=== PATIENT | male | born 1945 | race Caucasian/White ===

== ENCOUNTER → 2019-04-04 05:31 | Day surgery (SDC) | payer MEDICARE, OTHER, BC ==
[~2019-04-04 05:31] MED LIST: Acetaminophen IV 1GM/100ML * 1,000 MG/100 ML VIAL IVPB ONE; Acetaminophen IV 1GM/100ML * 100 ML ONE; Artificial Tear OPHTH.OINT* 3.5 GM ONE; Buffered Lidocaine 1% SYRIN* 1 ML/SYRINGE INTRADERM ONE; Bupivacaine 0.25% SDV* 30 ML ONE; Dexamethasone IV* 4 MG/ML 1 ML (4 MG) ONE; DiMENhydriNATE IV* 50 MG/ML VIAL IV PUSH PRN; EPHEDrine (Pressors)* 50 MG/ML VIAL ONE; Famotidine IV* 10 MG/ML 2 ML (20 mg) IV ONE; Famotidine IV* 10 MG/ML 2 ML (20 mg) ONE; KETAMINE HCL* 50 MG/ML 10 ML VIAL ONE; Lidocaine 1% INJ* 10 MG/ML 30 ML SDV ONE; Lidocaine 2% PF * 5 ML VIAL ONE; Midazolam* 1 MG/ML 5 ML VIAL (5 MG) ONE; NS 0.9% 1000 ML** 1,000 ML IV SCH; Naloxone* 0.4 MG/ML 1 ML VIAL IV PRN; Ondansetron INJ* 2 MG/ML VIAL IV PRN; Ondansetron INJ* 2 MG/ML VIAL ONE; Phenylephrine 10 MG/ML VIAL* 1 ML VIAL ONE; Propofol* 10 MG/ML 20 ML BTL ONE; Succinylcholine* 20 MG/ML 10 ML VIAL ONE; fentaNYL* 50 MCG/ML 2 ML VIAL (100 MCG VIAL) IV PRN; fentaNYL* 50 MCG/ML 2 ML VIAL (100 MCG VIAL) ONE; hydrALAZINE IV* 20 MG/ML VIAL ONE
--- NOTE | 2019-04-04 12:36 | BRIEFOPN ---
Brief Operative/Procedure Note - Operation Details Pre-Op Diagnosis: Thyroid nodules; hyperparathyroidism Post-Op Diagnosis: same Procedures: Total thyroidectomy; parathyroidectomy (Right lower pole, with 4 gland exploration) Surgeon(s)/Proceduralists: Francesco. Assist: BRIDGET Mcclelland Anesthesia: GET. Fluids: 2100 ml RL Estimated Blood Loss: < 50 ml Findings: as above Specimen(s)/Culture(s) Description: throid gland (left and right lobes); right lower pole parathyroid gland; multiple frozen section biopsies intraop Complications: none
[2019-04-04 18:02] VITALS: BP 146/66
--- NOTE | 2019-04-04 21:37 | OP ---
DATE OF OPERATION: 04/04/19 - [facility] DATE OF : 43 SERVICE: General Surgery. SURGEON: Patricia Maya MD PRE-OP DIAGNOSIS: Primary hyperparathyroidism and multinodular goiter. POST-OP DIAGNOSIS: Primary hyperparathyroidism and multinodular goiter. OPERATIVE PROCEDURE: Total thyroidectomy and right lower parathyroidectomy. SPECIMEN: Right lower parathyroid and total thyroid. ESTIMATED BLOOD LOSS: Minimal, less than 10 cc. INDICATIONS FOR SURGERY: Mr. Farmer is a very pleasant 73-year-old gentleman with a history of metastatic renal cell carcinoma, who was recently diagnosed with primary hyperparathyroidism. Given his low GFR and a history of kidney stones, he met criteria for undergoing a parathyroidectomy. Preoperative localization studies did not identify a definitive parathyroid adenoma, therefore he gave informed consent for a parathyroidectomy with 4-gland exploration. Also prior to surgery he had a thyroid ultrasound showing multiple thyroid nodules. Three of them were biopsied and left thyroid nodule was a [place] IV. Given that he did not wish to potentially undergo a second surgery such as completion thyroidectomy, he elected to undergo a total thyroidectomy rather than a left diagnostic lobectomy and declined any further testing of this [place] IV nodule prior to surgery. He understood the risks included, but were not limited to bleeding, infection, injury to nearby structures, and permanent hypoparathyroidism. He understood the alternatives and benefits, and wished to proceed. DESCRIPTION OF PROCEDURE: The patient was brought back to the operating room and placed on the operating table in the supine position. Sequential compression devices were placed on bilateral lower extremities for DVT prophylaxis. No antibiotics were administered. General endotracheal anesthesia was induced and electrodes for the nerve monitor were attached. A time-out was performed prior to administering local anesthesia to the anterior neck. After this was done, a 0.25% Marcaine plus 1% lidocaine was infiltrated into subcutaneous tissue of the anterior neck. Next, the neck was prepped and draped in the normal sterile fashion. Prior to beginning the surgery, a second time-out was performed verifying the patient's name, date of , and the procedure to be performed. Next, an approximately 5 cm incision was made in the natural crease line approximately 2 fingerbreadths above the sternal notch. The skin was divided down to the subcutaneous tissue. The platysma was divided. The inferior and superior subplatysmal flaps were developed. Then, the medial raphe between the strap muscles was identified and divided. The strap muscles were retracted laterally off of the thyroid and isthmus was then divided off of the trachea. Attention was first turned towards removing the left thyroid lobe given that this was at the location of the [place] IV nodule. The medial attachments of the thyroid lobe to the trachea were divided. The space of King between on the superior pole vessels and the cricothyroid muscle was divided using LigaSure. The strap muscles were retracted laterally off of the left thyroid lobe. The middle thyroid vein was identified and divided and then the superior pole vessels were divided using a combination of LigaSure and 2-0 silk ties. After this was done, the left-sided lobe was able to be rotated medially and anteriorly out of the neck. The recurrent laryngeal nerve was identified both visually and with the nerve monitor. Its course was traced where it was inserted into the inferior constricting muscles. After this was identified, the left thyroid lobe was able to be safely removed off the trachea using LigaSure. It was carefully examined and the parathyroids were identified on the actual specimen. The upper pole was marked and it was carried off the table as specimen. Next, the left neck was explored for the left upper and left lower parathyroid glands. The left lower parathyroid gland was identified within the thyrothymic ligament. A piece of that was biopsied and confirmed to be a parathyroid tissue. Initially, the left upper parathyroid gland was not definitively identified. The extensive exploration within the normal locations of an upper gland was performed, including looking within the paraesophageal groove closer to the superior pole vessels and near the cricothyroid muscle. Eventually, the left upper parathyroid gland was identified just posterior the nerve. It was biopsied at the end of the case and the biopsy results confirmed that it was parathyroid tissue. Attention was turned towards the right thyroid lobe. The medial attachments to the trachea were divided using the LigaSure in a similar fashion to the left side. The strap muscles were retracted laterally off of the thyroid gland and the middle thyroid vein was identified and divided. The superior pole vessels were then divided using a combination of LigaSure and 2-0 silk ties, and then right gland was able to be rotated medial and anteriorly out to the neck. A very large right lower parathyroid gland was immediately visualized. It was subcapsular on the thyroid gland itself, which was likely the reason why it was not identified on ultrasound earlier. It was dissected out of its subcapsular location and was clearly very enlarged abnormal appearing parathyroid gland. Given that this was identified, the attention was turned towards identifying the right upper parathyroid gland. It was identified just posterior to the nerve and what would be a normal anatomic location near the cricothyroid muscle. Once these glands were identified, the right lower parathyroid was divided off the pedicle and the serial PTH values were obtained. The baseline had been obtained in the preop holding area. The T0, 5, and 10 were then obtained. The results were as follows: The baseline was 79.8, T0 was 1427.9, T5 was 54.7, and T10 was 288.5. This did meet the [place] criterion, however, an additional PTH value was obtained at time 60, which was 71.3. Given that [place] criterion was met and all 4 glands were identified (three of them were normal and the right lower gland was clearly extremely large and abnormal), the operation was concluded. Hemostasis was obtained in the neck. Tisseel was placed in the right and lateral neck space as well and then the strap muscles were reapproximated using 4-0 Vicryl sutures. The platysma was reapproximated using 4-0 Vicryl sutures. The skin was closed using a running 5-0 Prolene suture. Sterile dressing was in place. The patient's anesthesia was reversed and he was taken to the PACU in stable condition. At the end of the case, all counts were correct and I was present during the entirety of the case. [id number]/[facility] #: [id number] MTDD
== END | disposition home or self-care (01) ==
LOC: OR 05:31
PROVIDERS: ATTEND Surgery
DX: E21.0 Primary hyperparathyroidism (principal); D34 Benign neoplasm of thyroid gland; E04.2 Nontoxic multinodular goiter; C78.01 Secondary malignant neoplasm of right lung; C64.1 Malignant neoplasm of right kidney, except renal pelvis; E11.8 Type 2 diabetes mellitus with unspecified complications; G62.9 Polyneuropathy, unspecified; E78.5 Hyperlipidemia, unspecified; I10 Essential (primary) hypertension; R94.31 Abnormal electrocardiogram [ECG] [EKG]; Z79.84 Long term (current) use of oral hypoglycemic drugs; Z87.891 Personal history of nicotine dependence
CPT/HCPCS: 36415; 83970; 88305; 88307; 88331; 88341; 88342; 93005; C1776; J0330; J0360; J1100; J2250; J2405; J2704; J3010; J3490

== ENCOUNTER 2019-05-06 10:49 | Day surgery (SDC) | payer MEDICARE, OTHER ==
--- NOTE | 2019-05-03 19:11 | HP ---
CC: Dr. Daly HISTORY AND PHYSICAL: DATE OF PLANNED ADMISSION AND SURGERY: 05/06/19 HISTORY OF PRESENT ILLNESS: Mr. Farmer is a 73-year-old white male with a solitary left kidney, left renal calculi for cystoscopy and insertion of left ureteral stent. Mr. Farmer was worked up for hematuria last year and was diagnosed with a 7-cm solid right renal mass. He was referred to [facility] where he underwent robotic-assisted radical nephrectomy in June 2018. His postoperative course was smooth. Pathology showed locally invasive, poorly differentiated renal cell carcinoma with sarcomatoid differentiation. Metastatic workup showed metastatic disease with lymphadenopathy and bilateral pulmonary nodules. Biopsies of the lung nodules confirmed they were metastatic. The patient has been treated by Dr. Leonard in consultation with the Oncology Team at [facility] in [facility]. The patient has been on immunotherapy with good response and regression of his metastatic tumors. His treatment has been well tolerated. His most recent lab work showed normal CBC and differential, and his serum creatinine was 1.6. On 05/02/2019, he he was and [facility] and had a followup CT chest, abdomen , and pelvis with intravenous contrast. The findings showed a 1-cm upper pulmonary lobe mediastinal nodule and few punctate pulmonary nodules. There was a decrease in the mediastinal lymphadenopathy, showing a good response to his immunotherapy. This study also showed a 1 cm calculus in the lower aspect of the left renal pelvis, and a 6 mm calculus at the left ureteropelvic junction. There was no associated hydronephrosis. The patient has been totally asymptomatic from his left kidney having no flank pain and no hematuria. He has been making good urine all along. The patient was seen urgently in my office one day after the CT. Renal ultrasound showed the calculus at the left ureteropelvic junction to have migrated into an upper pole calyx. There was no hydronephrosis noted, and he had good left ureteral jets. He is now admitted for cystoscopy and insertion of a left ureteral stent in preparation for definitive treatment of the stones. PAST MEDICAL HISTORY AND SYSTEM REVIEW: He is diabetic, maintained on metformin and on glimepiride. He is hypertensive, on lisinopril 20 mg daily. He has hyperlipidemia, on simvastatin. He is on tamsulosin 0.4 mg daily for bladder outlet obstruction. ALLERGIES: He denies any allergies to medication. FAMILY HISTORY: Relevant for breast cancer in his mother and brain cancer in his father. SOCIAL HISTORY: The patient is a former smoker and stopped in 1987. He does not use alcohol. He denies any recreational drug use. MENTAL HISTORY: Negative. PHYSICAL EXAMINATION GENERAL: He is a pleasant, healthy-looking white male, who looks his age. VITAL SIGNS: Blood pressure 130/86, pulse of 70. LUNGS: Clear. HEART: Regular and rhythmic. No murmurs. ABDOMEN: Soft. No masses, no tenderness, and no CVA tenderness. EXTERNAL GENITALIA: Normal. RECTAL: Exam last June had shown a non-enlarged and non-suspicious prostate. IMPRESSION: 1. Status post right radical nephrectomy for poorly differentiated metastatic renal cell carcinoma, presently responding well to immunotherapy. 2. Nonobstructing left renal calculi, asymptomatic. 3. Diabetes mellitus. 4. Hypertension. PLAN/RECOMMENDATIONS: Cystoscopy and insertion of left ureteral stent in preparation for definitive treatment of the stones. Until the stent is placed, I asked the patient to call my office promptly if preoperatively he develops symptoms of left renal colic or if he becomes oliguric or anuric, then he will have emergency placement of the stent. I discussed the above plans with the patient and his . [id number]/[facility] #: [id number] [place]
[~2019-05-06 10:49] MED LIST changes: -Acetaminophen IV 1GM/100ML * 1,000 MG/100 ML VIAL IVPB ONE; -Acetaminophen IV 1GM/100ML * 100 ML ONE; -Artificial Tear OPHTH.OINT* 3.5 GM ONE; -Bupivacaine 0.25% SDV* 30 ML ONE; -Dexamethasone IV* 4 MG/ML 1 ML (4 MG) ONE; -DiMENhydriNATE IV* 50 MG/ML VIAL IV PUSH PRN; -EPHEDrine (Pressors)* 50 MG/ML VIAL ONE; -Famotidine IV* 10 MG/ML 2 ML (20 mg) IV ONE; -Famotidine IV* 10 MG/ML 2 ML (20 mg) ONE; -KETAMINE HCL* 50 MG/ML 10 ML VIAL ONE; +Lactated Ringers 1000 ML Bag* 1,000 ML IV SCH; -Lidocaine 1% INJ* 10 MG/ML 30 ML SDV ONE; -Lidocaine 2% PF * 5 ML VIAL ONE; -Midazolam* 1 MG/ML 5 ML VIAL (5 MG) ONE; -NS 0.9% 1000 ML** 1,000 ML IV SCH; -Naloxone* 0.4 MG/ML 1 ML VIAL IV PRN; -Ondansetron INJ* 2 MG/ML VIAL IV PRN; -Ondansetron INJ* 2 MG/ML VIAL ONE; -Phenylephrine 10 MG/ML VIAL* 1 ML VIAL ONE; -Propofol* 10 MG/ML 20 ML BTL ONE; -Succinylcholine* 20 MG/ML 10 ML VIAL ONE; -fentaNYL* 50 MCG/ML 2 ML VIAL (100 MCG VIAL) IV PRN; -fentaNYL* 50 MCG/ML 2 ML VIAL (100 MCG VIAL) ONE; -hydrALAZINE IV* 20 MG/ML VIAL ONE
[2019-05-06] MEDS ORDERED: Buffered Lidocaine 1% SYRIN* 1 ML/SYRINGE INTRADERM ONE (11:06)
[2019-05-06] MEDS ORDERED: cefTRIAXone(*) 2 GM ADDV.VIAL IVPB ONE (11:06)
[2019-05-06] MEDS ORDERED: Iohexol 180 (CONTRAST) 10 ML SDV IV ONE (11:54)
[2019-05-06] MEDS ORDERED: Naloxone* 0.4 MG/ML 1 ML VIAL IV PRN (12:07)
[2019-05-06] MEDS ORDERED: HYDROmorphone INJ1* 1 MG/ML SYRINGE IV PRN (12:07)
[2019-05-06] MEDS ORDERED: Lidocaine 2% JELLY* 6 ML JELLY TOPICAL ONE (12:45)
[2019-05-06] MEDS ORDERED: Lidocaine 2% JELLY* 20 ML (for OR use) ONE (12:45)
[2019-05-06] MEDS ORDERED: Propofol* 10 MG/ML 20 ML BTL ONE (12:58)
[2019-05-06 13:35] VITALS: BP 131/62
--- NOTE | 2019-05-06 20:46 | OP ---
DATE OF OPERATION: 05/06/19 [facility] DATE OF : 43 SURGEON: Keon Melara MD ANESTHESIOLOGIST: Dr. Snow. ANESTHESIA: IV sedation with MAC. PRE-OP DIAGNOSIS: Left renal calculi. POST-OP DIAGNOSIS: Left renal calculi. OPERATIVE PROCEDURES: 1. Cystoscopy. 2. Left retrograde pyelography. 3. Insertion of left ureteral stent (6-Lao). INDICATION FOR PROCEDURE: Mr. Farmer is a 73-year-old white male who 10 months ago underwent an urgent right radical nephrectomy by Dr. Joshua Samayoa at [facility] because of a large, bleeding, poorly differentiated renal cell carcinoma. He is presently on immunotherapy because of metastatic disease. On his routine CT scan done for followup, it was noted he had 1-cm calculus in a mid pole infundibulum of the left kidney and another 6-mm calculus at the left ureteropelvic junction. There was no associated hydronephrosis. Because of that finding, the patient is brought in for urgent placement of left ureteral stent in preparation for definitive treatment of the stones. PATHOLOGY: At cystoscopy, the penile and bulbar urethrae looked normal. The prostatic urethra measured 2.5 cm in length and there was early prostate enlargement and obstruction. Examination of the bladder showed no suspicious bladder lesions. No calculi or diverticula were noted. The ureteral orifices looked normal. Upon left retrograde pyelography, there was no hydronephrosis noted. DESCRIPTION OF PROCEDURE: With the patient in the dorsal lithotomy position and under intravenous sedation with anesthesia monitoring, patient was prepped and draped for cystoscopy. Xylocaine jelly was instilled in the urethra. A 20- Lao cystoscope was introduced under direct vision and the urethra and the bladder were inspected and the above findings noted. A flexible tip guidewire was then introduced into the left orifice and positioned in the area of the renal pelvis under fluoroscopy. Retrograde pyelography was then performed. A size 6-Lao stent was then placed with the proximal end coiling in the collecting system and the distal end coiling inside the bladder. The patient tolerated the procedure well and left the operating room in good condition. The plan is to obtain a KUB postoperatively. Based on the KUB, decision will be made regarding definitive treatment of the stones. [id number]/[facility] #: [id number] [facility]
== END 2019-05-06 13:37 | disposition home or self-care (01) ==
LOC: OR 10:49
PROVIDERS: ATTEND Urology
DX: N20.0 Calculus of kidney (principal); Z90.5 Acquired absence of kidney; E11.8 Type 2 diabetes mellitus with unspecified complications; E78.5 Hyperlipidemia, unspecified; I10 Essential (primary) hypertension; Z85.528 Personal history of other malignant neoplasm of kidney; Z85.118 Personal history of other malignant neoplasm of bronchus and lung; Z79.84 Long term (current) use of oral hypoglycemic drugs; Z79.899 Other long term (current) drug therapy; Z87.891 Personal history of nicotine dependence
CPT/HCPCS: 74018; 74420; C1876; J0696; J2704